=== PATIENT | female | born 1935 | race Caucasian/White ===

== ENCOUNTER 2017-06-18 11:33 | Emergency (ER) | payer MEDICARE ==
[~2017-06-18] VITALS: Ht 167.6 cm; Wt 70.3 kg
[~2017-06-18 11:33] MED LIST: GABAPENTIN TAB600 MG PO; LEVAQUIN500 MG PO; LISINOPRIL 20MG20 MG PO; LORAZEPAM1 MG/TABLE PO; METOPROLOL 25 M25 MG PO; ONDANSETRON4 MG PO; TRAMADOL 50MG T50 M1 PO; VITAMIN D350000 UNIT PO; ZOLPIDEM 10MG T10 MG PO
--- NOTE | 2017-06-18 12:08 | Urgent Treatment Center Report ---
History of Present Issue Date/Time Seen by Provider 06/18/17 1203 Visit Reason Pt arrived:Walked Presenting Problem:PT C/O SOA AND A PAIN IN HER LEFT UPPER BACK THAT GOES TO THE FRONT OF HER CHEST. PT DENIES COUGH. PT STATES THAT SOA HAS BEEN PRESENT X2 WEEKS. PT THINKS IT MAY BE D/T STRESS BECAUSE SHE HAS TENSION BUILT UP INTO HER NECK Location if Accident: Onset of symptoms date/time:/ or onset unknown for:MEDICAL HX UNKNOWN Have you (or family members/close friends) recently traveled outside the [place]? N If Yes, where/when: Have you had exposure to infectious disease within the past month? TB? Other? Specify: Patient state that at times she has had pain in her back and it comes around her side into her chest area Denies chest pain State that pain is worse with inspiration and movement and tends to occur when she is stressed or has been out in the cold for awhile State that at times feels like a muscle spasm like pain that is in her upper shoulders and back. State that she thinks she may be overdoing it State that when she feels short of air she has noticed that she is feeling a little anxious and thinks her symptoms may be stress related State that she has had simular pain in the past and she had pneumonia and pleurisy Also state that she is not having any pain at this time she had an appointment with her family doctor of but her daughter wanted her to come in today ALLERGIES Coded Allergies: sulfacetamide (08/23/16) Home Medications Active Scripts Levofloxacin (Levaquin 500MG) 500 MG PO DAILY #7 TAB Prov: 09/30/15 Reported Medications Gabapentin 600 MG PO BID ONDANSETRON HCL (Ondansetron HCl 4mg Tab) 4 MG PO Q8HP PRN NAUSEA Cholecalciferol (Vitamin D3) (Vitamin D3) 50,000 UNIT PO MoFr TRAMADOL HCL (Tramadol) 50 MG PO QID Lorazepam (Lorazepam 1MG) 1 MG PO BID #1 Metoprolol Tartrate (Metoprolol 25MG) 25 MG PO BID LISINOPRIL (Lisinopril) 20 MG PO DAILY History Medical History General CAD? Yes Angina: No PA: No Hypertension? Yes Hyperlipidemia? Yes CHF? No DVT? No PE? No COPD? No Asthma? No Anemia? Yes GERD? Yes Gastric ulcers? Yes GI Bleed? No Hernia? No Thyroid Problems? No Hypothyroidism? No CVA? No Seizures? No Diabetes? No Renal Insuffiency? No UTI? Yes Stones? No BPH? No GB Disease: No Nephritic Syndrome? No Asplenia? No Hepatitis? No Sickle Cell Disease? No Arthritis? Yes Migraines? Yes Cataracts? Yes Glaucoma? No MRSA? No HIV? No TB? No Anxiety? Yes Depression? No Cancer? No More? No Immunization HX DT/Tetanus Unknown Flu 2014-16FSN Pneumonia Received In Past Surgical Hx Previous Surgery?Y BACK NOSE HYSTERECTOMY RECTOCELE CYSTOCELE HEART CATH X2 Family History Family HX Diabetes No CAD No Hypertension Yes Hyperlipidemia No Cancer No TB No Social History Smoking Hx Smoker: Never Smoker Tobacco: No Alcohol Alcohol: No Review of Systems All Other Systems Reviewed and Negative Constitutional denies fever ENT nose congestion, throat pain. Respiratory denies cough, shortness of breath, denies wheezing Cardiovascular denies chest pain, denies edema, denies palpitations, denies syncope Physical Exam Vital Signs Vital Signs Date Time Temp Pulse Resp B/P Pulse O2 O2 Flow FiO2 Ox Delivery Rate 06/18 1147 97.8 73 20 146/84 98 General Appearance normal appearance, WD/WN, no apparent distress Ear, Nose, Throat Throat red, irritated, reports clear drainage from nose Respiratory Status Yes: trachea midline, chest symmetrical, non tender chest. No: respiratory distress. Lung Sounds bilateral: normal breath sounds, lungs clear. Cardiovascular normal exam, regular rate/rhythm, no peripheral edema Neurologic alert, normal exam, oriented x 3 Comments Patient denies pain at this time States that at times pain feels muscular State that when pain hits she can feel tension in her upper shoulders and neck State that she feels like a muscle spasm. Medical Decision Making LABS/Meds/Orders Pt receiving controlled substance in ED? No Results/Orders Orders Procedure Date/time Status THORACIC SPINE-3V SWIMMERS 06/18 1227 Active LUMBAR SPINE 5 VIEWS 06/18 1227 Active CHEST(2 VIEWS-NOT PORTABLE) 06/18 1201 Active XRAY/CT/US XRAY/CT/US XRAY chest, L-spine, T-spine XR interpretation by discussed w/radiologist Xray Results no infiltrates, Lumbar Spndylosis with degenerative disk disease and arthritic changes noted in Lspine, No fractures or acute finding in Tspine, chest no infiltrates, no acute findings Progress [facility] Progress Notes 1 Comment Discussed patient complaint and symptoms with Kira Hernandez in Dr Hayward office and agreed Have patient follow up with her on in the clinic. If symptoms return, or she begans to have chest pain go straight to ER Informed her that I ordered Tspine and Lspine xrays that I would not have patient wait for readings so she will have official reading for patient to follow up on [facility] Progress Notes 2 Comment Patient still denies pain xrays complete and read by radiologist patient verbalized understanding to follow up with family doctor on as scheduled Departure Departure Time of Disposition 1243 Disposition DC Home or Self Care(routine) Clinical Impression Primary Impression: Mid back pain on left side Secondary Impressions: Arthritic-like pain Qualifiers: Joint pain location: unspecified Qualified Code: M25.50 - Pain in unspecified joint Condition STABLE Referrals Cristin Lao APRN (Family) Patient Instructions Back Pain (Alternative Therapy), DI for Thoracic Back Pain, Thoracic Back Pain Additional Instructions When you had your xray done in 09/2015 it was recommended for follow up with CT scan, you are over dated to have this test done. You need to speak to your family doctor on and advise them that you still have not had this test and get it completed as requested by the Radiologist If pain returns go straight to ER REturn if needed Over the coutner Motrin or Tylenol as needed for pain Discharge Counseling Counseled pt/family regarding diagnosis, test results, medications/RX, home care, follow up needs at [phone]
--- NOTE | 2017-06-18 13:12 | RADIOLOGY REPORT PS360 ---
CHEST(2 VIEWS-NOT PORTABLE) HISTORY: SOA ORDERING PHYSICIAN: DONNA NG APRN PATIENT AGE: 81 years COMPARISON: 09/28/2015 FINDINGS: Mild cardiomegaly without failure. Lungs are clear bilaterally. Previously described nodular opacities no longer apparent. Chronic changes are present in the right lung base. IMPRESSION: No acute finding.
--- NOTE | 2017-06-18 13:13 | RADIOLOGY REPORT PS360 ---
EXAM: THORACIC SPINE-3V SWIMMERS HISTORY: Mid back pain pain in middle back COMPARISON: None FINDINGS: Normal alignment. No fracture or dislocation. No lytic or blastic change. No significant degenerative change. The disc spaces are preserved. There is minimal lower thoracic curvature convex right IMPRESSION: No acute finding
--- NOTE | 2017-06-18 13:15 | RADIOLOGY REPORT PS360 ---
EXAM: LUMBAR SPINE 5 VIEWS HISTORY: Low back pain ORDERING PHYSICIAN: DONNA NG APRN PATIENT AGE: 81 years COMPARISON: None FINDINGS: Mild lumbar scoliosis convex right. Degenerative disc disease is present from L1 to S1 worse at L2-L3. Facet arthritic changes are present at L3-L4 and L5. No fracture or dislocation. IMPRESSION: Lumbar spondylosis with degenerative disc disease, facet arthritic change, and scoliosis
[2017-06-18 13:32] VITALS: BP 146/84
== END 2017-06-18 13:33 | disposition home or self-care (01) ==
LOC: UTC 11:33
DX: M54.6 Pain in thoracic spine (principal); M25.50 Pain in unspecified joint; R06.02 Shortness of breath; R07.9 Chest pain, unspecified